=== PATIENT | female | born 1985 | race Caucasian/White ===

== ENCOUNTER 2017-03-28 11:11 | Emergency (ER) | payer MEDICAID ==
[~2017-03-28] VITALS: Ht 175.3 cm; Wt 94.5 kg
[2017-03-28 11:14] VITALS: BP 146/86
[2017-03-28 11:48] LABS: UA SPECIFIC GRAVITY 1.025 (1.005-1.035); microscopic required? YES; urine erythrocyte 2+ (NEGATIVE)
[2017-03-28 12:15] LABS: BASOPHIL % 0.4 % (0-2); PLATELET COUNT 332 x10^3mcL (130-400)
[2017-03-28 12:27] LABS: CALCIUM 8.8 mg/dL (8.5-10.1); CARBON DIOXIDE 27.6 mmol/L (21-32); CHLORIDE SERUM 107 mmol/L (98-107); CREATININE SERUM 0.6 mg/dL (0.6-1.0); GFR1 > 60 mL/min; GLUCOSE SERUM 117 mg/dL (74-106); POTASSIUM SERUM 3.6 mmol/L (3.5-5.1); SODIUM SERUM 143 mmol/L (136-145)
== END 2017-03-28 13:15 | disposition home or self-care (01) ==
LOC: ED 11:11
PROVIDERS: Emergency Medicine
DX: N30.01 Acute cystitis with hematuria (principal)
CPT/HCPCS: J0696

== ENCOUNTER 2019-03-27 20:13 | Emergency (ER) | payer OTHER ==
[~2019-03-27] VITALS: Ht 175.3 cm; Wt 94.8 kg
[2019-03-27 20:17] VITALS: BP 130/76; Ht 175.3 cm; Wt 94.8 kg
== END 2019-03-27 21:30 | disposition home or self-care (01) ==
LOC: ED 20:13
DX: S83.92XA Sprain of unspecified site of left knee, initial encounter (principal); I10 Essential (primary) hypertension; X58.XXXA Exposure to other specified factors, initial encounter; Y93.89 Activity, other specified; Y92.89 Other specified places as the place of occurrence of the external cause; Y99.8 Other external cause status
CPT/HCPCS: J1885; Q0092